=== PATIENT | male | born 1980 | race African-American/Black ===

== ENCOUNTER 2017-11-07 21:36 | Inpatient (IN) | payer MEDICAID, OTHER ==
[2017-11-07] MEDS ORDERED: Heparin 1,000 UNITS/ML VIAL ONE (21:40)
[2017-11-07] MEDS ORDERED: Lidocaine 1% (PF) 30 ML VIAL ONE (21:47)
[2017-11-07] MEDS ORDERED: Succinylcholine Chloride 20 MG/ML 10 ml SYRINGE FS ONE (21:50)
[2017-11-07] MEDS ORDERED: Benzocaine 20% Spray 60 ML CAN ONE (21:52)
[2017-11-07 22:01] LABS: Hemoglobin 15.4 g/dL (14.0-18.0); Mean Corpuscular HGB CONC 33.9 g/dL (32.0-36.0); Mean Corpuscular Hemoglobin 28.2 pg (27.0-31.0); Mean Corpuscular Volume 83.2 fl (80.0-94.0); RBC Distribution Width 14.2 % (11.5-14.5); Red Blood Cell (RBC) Count 5.46 mill/uL (4.70-6.10); White Blood Cell (WBC) Count 6.7 thou/uL (4.8-10.8)
[2017-11-07 22:07] LABS: PTT 66.5 SEC (22.9-36.1)
[2017-11-07 22:16] LABS: ALT (SGPT) 35 U/L (8-55); AST (SGOT) 33 U/L (5-34); Alkaline Phosphatase 93 U/L (40-150); Anion Gap 17 mmol/L (10-20); BUN (Urea Nitrogen) 11 mg/dL (8.9-20.6); Bilirubin, Total 0.3 mg/dL (0.2-1.2); Calc. Creatinine Clearance 0 mL/min (70-130); Calcium 9.7 mg/dL (7.8-10.44); Carbon Dioxide 24 mmol/L (22-29); Chloride 99 mmol/L (98-107); Estimated GFR-MDRD Greater than 90; Globulin 3.7 g/dL (2.4-3.5); Glucose 284 mg/dL (70-105); Lipase 116 U/L (8-78); Potassium 4.2 mmol/L (3.5-5.1); Protein, Total 7.7 g/dL (6.0-8.3); Sodium 136 mmol/L (136-145)
[2017-11-07 22:18] LABS: CKMB 5.8 ng/mL (0-6.6)
[2017-11-07] MEDS ORDERED: Aggrastat 12.5 MG/250 ML 250 ML ONE (22:18)
[2017-11-07] MEDS ORDERED: Ondansetron HCl/PF 4 MG/2 ML Vial ONE (22:18)
[2017-11-07 22:21] LABS: Band 2 % (5-11); Eosinophils 1 % (0-10); Lymphocytes 49 % (21-51); MDiff Complete? YES; Mean Platelet Volume 7.6 fL (7.4-10.4); Monocytes 9 % (0-10); Neutrophil 39 % (42-75); PLT Morphology Comment Appears Adequate; Platelet Count 216 thou/uL (130-400)
[2017-11-07] MEDS ORDERED: Heparin 10,000 UNITS/1 ML VIAL ONE (22:24)
[2017-11-07] MEDS ORDERED: Lidocaine 2% PF 100 mg/5 ml Syringe ONE (22:24)
[2017-11-07 22:25] LABS: Troponin I 0.553 ng/mL (< 0.028)
[2017-11-07] MEDS ORDERED: Lidocaine 2 gm/D5W 500 ml 500 ML ONE (22:26)
[2017-11-07] MEDS ORDERED: DOPamine 400 MG/D5W 250 ML 250 ML ONE (22:49)
[2017-11-07] MEDS ORDERED: traMADol HCl 50 MG TAB PO PRN (23:17)
[2017-11-07] MEDS ORDERED: Mag-Al 1200 mg/1200 mg/30 ML UDCUP PO PRN (23:17)
[2017-11-07] MEDS ORDERED: Nitroglycerin 0.4 MG TAB (25 Tab Bottle) SL PRN (23:17)
[2017-11-07] MEDS ORDERED: Zolpidem Tartrate 5 MG TAB PO PRN (23:17)
[2017-11-07] MEDS ORDERED: Milk Of Magnesia 30 ML UDCUP PO PRN (23:17)
[2017-11-07] MEDS ORDERED: Aggrastat 12.5 MG/250 ML 250 ML IVPB SCH ×2 (23:30)
[2017-11-07] MEDS ORDERED: Sodium Chloride 0.9% 1,000 ML IV SCH (23:30)
[2017-11-07 23:57] LABS: #Eosinphils 0.1 thou/uL (0.0-0.7); #Monocytes 0.7 thou/uL (0.11-0.59); #Neutrophils 8.3 thou/uL (1.40-6.50); %Basophils 0.4 % (0.0-1.0); %Eosinophils 0.5 % (0.0-10.0); %Lymphocytes 10.2 % (21.0-51.0); %Monocytes 6.5 % (0.0-10.0); %Neutrophils 82.4 % (42.0-75.0); Hemoglobin 14.3 g/dL (14.0-18.0); Mean Corpuscular HGB CONC 34.6 g/dL (32.0-36.0); Mean Corpuscular Hemoglobin 28.9 pg (27.0-31.0); Mean Corpuscular Volume 83.5 fl (80.0-94.0); Mean Platelet Volume 6.8 fL (7.4-10.4); Platelet Count 300 thou/uL (130-400); RBC Distribution Width 13.9 % (11.5-14.5); Red Blood Cell (RBC) Count 4.95 mill/uL (4.70-6.10); White Blood Cell (WBC) Count 10.1 thou/uL (4.8-10.8)
[2017-11-08 00:18] VITALS: BMI 54.1
[2017-11-08 00:24] LABS: CKMB 7.6 ng/mL (0-6.6); Troponin I 0.951 ng/mL (< 0.028)
[2017-11-08] MEDS: Amiodarone In Dextrose 200 ML IVPB SCH ×2 (00:35→05:23)
[2017-11-08] MEDS ORDERED: Dextrose 5% in Water 1,000 ML IV PRN (00:40)
[2017-11-08] MEDS ORDERED: Dextrose 50% Abboject 50 ML SYRINGE SLOW IVP PRN (00:40)
--- NOTE | 2017-11-08 01:14 | HP ---
PRIMARY CARE PHYSICIAN: None. CHIEF COMPLAINT: Chest pain. HISTORY OF PRESENT ILLNESS: Mr. Helm is a pleasant 37-year-old gentleman who was seen at [facility] on 11/08/2017. He presented to the emergency room yesterday evening complaining of crushing chest pain over the last week. It was accompanied by shortness of breath. He was found to have ST-elevation myocardial infarction. STEMI protocol was activated and was brought to the emergency room. In the emergency room, he received dopamine for hypotension. He also had cardiac arrest with ventricular fibrillation and had CPR with defibrillation. He was then taken by Cardiology Service to mobile home laborer. He was found to have an RCA lesion, which was stented. He is now in the critical care unit. Occupational Health Physiotherapist wanted the patient to be admitted under the hospitalist service. Following defibrillation, patient has been in atrial fibrillation with rapid ventricular response. REVIEW OF SYSTEMS: The following complete review of systems was negative, unless otherwise mentioned in the HPI or below: Constitutional: Weight loss or gain, ability to conduct usual activities. Skin: Rash, itching. Eyes: Double vision, pain. ENT/Mouth: Nose bleeding, neck stiffness, pain, tenderness. Cardiovascular: Palpitations, dyspnea on exertion, orthopnea. Respiratory: Shortness of breath, wheezing, cough, hemoptysis, fever, or night sweats. Gastrointestinal: Poor appetite, abdominal pain, heartburn, nausea, vomiting, constipation, or diarrhea. Genitourinary: Urgency, frequency, dysuria, nocturia. Musculoskeletal: Pain, swelling. Neurologic/Psychiatric: Anxiety, depression. Allergy/Immunologic: Skin rash, bleeding tendency. PAST MEDICAL HISTORY: Significant for diabetes mellitus and hypertension. SURGICAL HISTORY: None. SOCIAL HISTORY: Does not use alcohol or recreational drugs. He smokes 10-15 cigarettes a day. FAMILY HISTORY: Myocardial infarction in his grandmother. ALLERGIES: No known drug allergies. CURRENT MEDICATIONS: These need to be clarified. PHYSICAL EXAMINATION: GENERAL: On examination, Mr. Helm is awake and alert, not in acute distress. VITAL SIGNS: Blood pressure is 129/92, heart rate is 124. He is breathing at rate of 30 and saturating 92% on 2 liters of oxygen. He is afebrile. He is morbidly obese. EYES: No scleral icterus, no conjunctival pallor. ENT: Moist mucosal membranes, no oropharyngeal erythema or exudates. NECK: Supple, nontender, normal range of movement, trachea midline. RESPIRATORY: Accessory muscles of breathing are not active. Chest wall movements are symmetrical bilaterally. Lungs are clear to auscultation without wheeze, rhonchi, or crepitations. CARDIOVASCULAR: S1 and S2 are heard, tachycardic and irregular. Peripheral pulses palpable. No carotid bruit, no pericardial rub. ABDOMEN: Distended, nontender, bowel sounds heard. NEUROLOGIC: Cranial nerves II-XII are intact. Deep tendon reflexes are 2+. MUSCULOSKELETAL: Power is 5/5 in all 4 extremities. SKIN: No rashes or subcutaneous nodules. No oozing at the right groin puncture site. LYMPHATIC: No cervical lymphadenopathy. PSYCHIATRIC: Normal mood, normal affect, patient is oriented to person, place, and time. LABORATORY DATA: Mr. Helm' labs and investigations were reviewed. I reviewed his electrocardiogram from 2139 hours yesterday, which shows ST elevations in the inferolateral leads. skin carver at this time shows atrial fibrillation with rapid ventricular response. He has an unremarkable CBC , INR 1.0, elevated troponin I of 0.951, elevated glucose of 284, otherwise unremarkable comprehensive metabolic profile and elevated lipase of 116. ASSESSMENT AND PLAN: Mr. Helm is a pleasant 37-year-old gentleman who was seen at [facility] on 11/08/2017. His problem list includes: 1. ST-elevation myocardial infarction: He underwent PCI with bare-metal stent to the distal right coronary artery. His estimated left ventricular ejection fraction is 60%-65%. We will resume care of the patient and continue him on statin, beta-diego, [place] inhibitor, and aspirin. He has also been started on ticagrelor, which will be continued. 2. Tobacco abuse: Patient has been counseled regarding tobacco cessation. 3. Obesity: Consult dietitian. 4. Atrial fibrillation with RVR: pt has been started on amiodarone. 5. Diabetes mellitus: Accuchecks, insulin sliding scale. 6. HTN: Monitor vital signs, titrate antihypertensives as needed. LEVEL OF RISK: Moderate. LEVEL OF COMPLEXITY: Moderate. MTDD
[2017-11-08] MEDS ORDERED: Digoxin 0.5 MG/2 ML AMP SLOW IVP SCH ×3 (04:00→16:00)
[2017-11-08 04:43] LABS: #Lymphocytes 1.2 thou/uL (1.20-3.40); #Monocytes 0.6 thou/uL (0.11-0.59); #Neutrophils 6.4 thou/uL (1.40-6.50); %Basophils 0.4 % (0.0-1.0); %Eosinophils 0.2 % (0.0-10.0); %Lymphocytes 14.9 % (21.0-51.0); %Neutrophils 77.4 % (42.0-75.0); Mean Corpuscular HGB CONC 34.4 g/dL (32.0-36.0); Mean Corpuscular Hemoglobin 28.8 pg (27.0-31.0); Mean Corpuscular Volume 83.6 fl (80.0-94.0); Platelet Count 310 thou/uL (130-400); RBC Distribution Width 13.9 % (11.5-14.5); Red Blood Cell (RBC) Count 4.86 mill/uL (4.70-6.10); White Blood Cell (WBC) Count 8.3 thou/uL (4.8-10.8)
[2017-11-08 05:05] LABS: ALT (SGPT) 64 U/L (8-55); AST (SGOT) 63 U/L (5-34); Albumin 3.5 g/dL (3.5-5.0); Alkaline Phosphatase 77 U/L (40-150); Anion Gap 14 mmol/L (10-20); BUN (Urea Nitrogen) 12 mg/dL (8.9-20.6); Bilirubin, Total 0.3 mg/dL (0.2-1.2); Calc. Creatinine Clearance 242 mL/min (70-130); Calcium 9.1 mg/dL (7.8-10.44); Carbon Dioxide 26 mmol/L (22-29); Cardiac Risk 5.8 (Less than 4.5); Chloride 103 mmol/L (98-107); Cholesterol 185 mg/dl (< 200 Desired); Estimated GFR-MDRD Greater than 90; Globulin 2.7 g/dL (2.4-3.5); Glucose 255 mg/dL (70-105); HDL Cholesterol 32 mg/dL (>60 Neg Risk); LDL Cholesterol, Calculated 100 mg/dL; Potassium 4.3 mmol/L (3.5-5.1); Protein, Total 6.2 g/dL (6.0-8.3); Sodium 139 mmol/L (136-145); Triglycerides 267 mg/dL (Less than 150)
--- NOTE | 2017-11-08 05:53 | HP ---
DATE OF ADMISSION: 11/07/2017 INDICATION FOR ADMISSION: A 37-year-old patient who presented to the emergency room with acute ST se gment elevation inferior myocardial infarction was advised to undergo emergent cardiac catheterizatio n. When he was seen in the emergency room, I talked to his family. The patient actually arrived the re complaining of chest pain, which has been ongoing for about 2 days and presented to emergency room due to worsening chest pain, 911 was called. When he arrived, the patient was diaphoretic and compl aining of chest pain when he arrived to emergency room, had acute ST segment elevations in the inferi or leads. The patient then developed acute ventricular fibrillation required resuscitation. I belie ve, he was shocked once or twice in the emergency room, CPR was initiated. He was then stabilized af ter being given, I believe lidocaine in the emergency room and also was given heparin. Emergently, w e are taking the patient to the cardiac catheterization lab. Prior to this, I discussed with the leyla padmini. PAST MEDICAL HISTORY: His past medical history which includes; 1. Diabetes for about 20 years. 2. Hypertension. 3. Hypercholesterolemia. SOCIAL HISTORY: He recently was released from half-way. He is . He has 2 children, the age is 12 and 15. He smoked in the past and continues to smoke a third of a pack a day since after 20 year s. He denies any alcohol use and denies any drug use at this time. FAMILY HISTORY: Noncontributory. MEDICATIONS PRIOR TO ADMISSION: Included, Novolin N 100 unit/mL and 10 mL vial, he takes 20 units ev maryuri morning. He also takes 20 units every evening. He is on amlodipine 10 mg a day, hydrochlorothia zide 25 mg once a day, lisinopril 20 mg once a day, metformin 1000 mg 1 b.i.d., pravastatin 40 mg q.p .m. ALLERGIES: There were no known drug allergies. REVIEW OF SYSTEMS: A 12 point review of systems according to the family was unremarkable. The patie nt was in too much distress and too acute to do the review of systems for the patient. The family di d state he continues to smoke and has had a recent vomiting and some diaphoresis, most likely associa mitchell with his acute inferior myocardial infarction. I suspect he became ischemic, but his original tr oponin I in the emergency room was 0.553, MBs were 5.8. His other laboratory data shows elevated blo od sugar, but originally on arrival in the emergency room tonight, it was 284. The patient does have a long history of diabetes. Otherwise, his review of systems unremarkable. PHYSICAL EXAMINATION: GENERAL: Reveals a morbidly obese patient, who is in significant distress at this time to continue c hest pain. He has already been shocked in the emergency room. VITAL SIGNS: Blood pressure was 155/102 when he arrived. By the time he arrived to the fish farm laborer, bl ood pressure was 108/69. He had a heart rate in the 120s. He has required cardioversion in the [facility] room. On arrival here, he was in atrial fibrillation from the time he was leaving the emergenc y room so also in the fish farm laborer. Respiratory rate in the 20s. He was on oxygen. He is a morbidly ob marcial gentleman. He is alert and oriented at this time. HEENT: Unremarkable. CARDIOVASCULAR: Exam revealed tachycardia, irregular rhythm. I do not hear any significant murmurs, heaves, thrills, bruits, or rubs. CHEST: Clear anteriorly. ABDOMEN: Morbidly obese. EXTREMITIES: Showed no clubbing or cyanosis. No significant edema. Pedal pulses are present. NEUROLOGIC: The patient appears to be intact. SKIN: Slightly clammy when he was in the emergency room. NEUROLOGICAL: The patient remains intact. LABORATORY DATA: EKG shows acute inferior ST segment elevation myocardial infarction. IMPRESSION: 1. Acute inferior myocardial infarction. The patient will be taken emergently to the cardiac cathet erization lab. I explained the procedure and risks to his family and also to him. He will need to [facility] emergent cardiac catheterization for which he will undergo the procedure today. 2. Diabetes. We will ask the Hospitalist Service to assist in his care. Actually, we tried to admi t the patient to the Hospital Service. Due to his multiple other medical problems, we will continue his sliding scale insulin at this time. 3. History of hypercholesterolemia. We will continue monitor him on some type of statin medication. 4. History of tobacco abuse. He will be strongly encouraged to stop smoking altogether. 5. History of hypertension. We will need to adjust his medications accordingly in order to lower th e blood pressure. I have explained the risks and procedures to he and his family to include bleeding , infection, myocardial infarction, worsening of as well as bleeding, infections, and renal ins ufficiency, especially in the phase of diabetes. He understands and will proceed for emergent cardia c catheterization as soon as we can get the patient to the fish farm laborer.
[2017-11-08] MEDS: Insulin Regular 300 UNITS/3 ML VIAL SC PRN ×3 (06:32→20:54)
[2017-11-08 07:18] LABS: CKMB 25.3 ng/mL (0-6.6)
[2017-11-08] MEDS ORDERED: Amiodarone In Dextrose 200 ML IVPB SCH (08:29)
--- NOTE | 2017-11-08 08:40 | PDOC.CTH ---
<Joan Morales - Last Filed: 11/08/17 08:44> Cardiology Progress Note - Subjective The pt seen and examined. No overnight events. No cardiac complaints. - Objective Vital Signs Temp Pulse Resp Pulse Ox 11/08/17 04:00 98.7 F 11/08/17 03:53 124 H 11/08/17 00:58 97.8 F 122 H 25 H 94 L 11/08/17 00:00 97.8 F 11/07/17 11/08/17 11/09/17 06:59 06:59 06:59 Intake Total 1098 Output Total 1125 Balance -27 - Physical Examination General/Neuro: alert & oriented x3 Neck: no JVD present Lungs: CTA Heart: other: (Irregular) Abdomen: soft Extremities: other: (No edema; good pulse in RLE) - Telemetry Telemetry Rhythm: Aifb HR 90-100s - Labs Result Diagrams: 11/08/17 04:10 11/08/17 04:10 Troponin/CKMB CK-MB (CK-2) 25.3 ng/mL (0-6.6) H* 11/08/17 04:10 Troponin I 0.951 ng/mL (< 0.028) H* 11/07/17 23:17 - Assessment/Plan 1. STEMI with s/p Cardiac cath wtih Shana-metal stent x1 in distal RCA on - stable; renal function is stable; on BBlocker, [place], Brilinta, ASA 81mg, and Statin; cont. monitor on tele 2. Afib with RVR - HR has been 90-110s with Amiodarone IV drip, Dig, and BBlocker; Amiodarone IV will be changed to 400mg PO BID x 1wk and then changed to 200mg BID; 3. HTN - stable with current medication 4. Hyperlipidemia - LDL was 100; start Statin 5. DM type 2 - on ACHS Insuline SS; managed by PCP 6. Obese - weight management education given 7. Tobacco abuse - smoking cessation education given to the pt and family MAR reviewed * If the pt is stable after Aggrestat is d/raquel at 1200 today, the pt can be tx to tele Review of Systems - Review of Systems Constitutional: reports: no symptoms reported EENTM: reports: no symptoms reported Respiratory: reports: no symptoms reported Cardiac (ROS): reports: no symptoms reported ABD/GI: reports: no symptoms reported : reports: no symptoms reported Musculoskeletal: reports: no symptoms reported <Riana Ordonez - Last Filed: 11/08/17 17:10> Cardiology Progress Note - Objective Vital Signs Temp Pulse Resp Pulse Ox 11/08/17 15:31 81 11/08/17 09:53 124 H 11/08/17 08:00 99.2 F 100 20 2 L 11/07/17 11/08/17 11/09/17 06:59 06:59 06:59 Intake Total 1098 1447 Output Total 1125 1300 Balance -27 147 - Labs Result Diagrams: 11/08/17 04:10 11/08/17 04:10 Troponin/CKMB CK-MB (CK-2) 25.3 ng/mL (0-6.6) H* 11/08/17 04:10 Troponin I 5.798 ng/mL (< 0.028) H* 11/08/17 04:10 - Assessment/Plan pt. seen and eval. by me. I agree with the a/P by the TABLE GAMES DUAL RATE SUPERVISOR.. It appears that his CA was aborted soon enough to avoid much myocardial damage.
[2017-11-08 09:00] LABS: Troponin I 5.798 ng/mL (< 0.028)
[2017-11-08] MEDS ORDERED: Carvedilol 3.125 MG TAB PO SCH (09:00)
[2017-11-08] MEDS: TICAGRELOR 90 MG TABLET PO SCH ×2 (09:42→20:46)
--- NOTE | 2017-11-08 14:06 | PDOC.PN ---
- Subjective Encounter Start Date: 11/08/17 Encounter Start Time: 14:05 Subjective: nsg notes rev, hero ovn, no new c/o, @ bedside - Objective Vital Signs & Weight: Vital Signs (12 hours) Temp Pulse Resp Pulse Ox 11/08/17 09:53 124 H 11/08/17 08:00 99.2 F 100 20 2 L 11/08/17 04:00 98.7 F 11/08/17 03:53 124 H Most Recent Monitor Data Heart Rate from ECG 101 NIBP 125/75 NIBP BP-Mean 89 Respiration from ECG 29 SpO2 95 I&O: 11/07/17 11/08/17 11/09/17 06:59 06:59 06:59 Intake Total 1098 1267 Output Total 1125 800 Balance -27 467 Result Diagrams: 11/08/17 04:10 11/08/17 04:10 Additional Labs: Accuchecks 11/08/17 11/08/17 12:28 06:35 POC Glucose 195 H 195 H Phys Exam - Physical Examination Constitutional: NAD HEENT: PERRLA, moist MMs Respiratory: no wheezing, no rales, no rhonchi, clear to auscultation bilateral Cardiovascular: RRR, no significant murmur, no rub Gastrointestinal: soft, positive bowel sounds Musculoskeletal: no edema, pulses present Psychiatric: normal affect Dx/Plan - Plan * STEMI * s/p LHC with BMS to RCA 11/07 * apprec card c/s * continue med mgmt afib RVR * rate controlled * cont amio, dig, ASA IDDM currently stable diet: cardiac activity: cardiac dvt ppx Review of Systems - Medications/Allergies Allergies/Adverse Reactions: Allergies Allergy/AdvReac Type Severity Reaction Status Date / Time No Known Drug Allergies Allergy Verified 11/08/17 08:43 Medications: Current Medications Al Hydroxide/Mg Hydroxide (Maalox) 30 ml PO Q3H PRN PRN Reason: Indigestion Amiodarone HCl (Cordarone) 400 mg PO BID [facility] Aspirin (Aspirin Chewable) 81 mg PO DAILY [facility] Last Admin: 11/08/17 08:44 Dose: 81 mg Atorvastatin Calcium (Lipitor) 40 mg PO HS [facility] Captopril (Capoten) 6.25 mg PO TID [facility] Last Admin: 11/08/17 08:44 Dose: 6.25 mg Carvedilol (Coreg) 3.125 mg PO BID [facility] Last Admin: 11/08/17 08:44 Dose: 3.125 mg Dextrose/Water (Dextrose 50%) 25 gm SLOW IVP PRN PRN PRN Reason: PER HYPOGLYCEMIC PROTOCOL Digoxin (Lanoxin) 0.25 mg SLOW IVP 1600 COLT Stop: 11/08/17 18:00 Digoxin (Lanoxin) 0.25 mg PO DAILY COLT Glucagon (Glucagon) 1 mg SC PRN PRN PRN Reason: PER HYPOGLYCEMIC PROTOCOL Dextrose/Water (D5w) 1,000 mls @ 0 mls/hr IV INF PRN; As Directed PRN Reason: PRN HYPOGLYCEMIC PROTOCOL Amiodarone HCl/Dextrose (Nexterone) 200 mls @ 0 mls/hr IVPB INF COLT; As Directed PRN Reason: Protocol Stop: 11/08/17 20:00 Insulin Human Regular (Humulin R) 0 units SC Q4H PRN; Protocol PRN Reason: POST OP SLIDING SCALE Last Admin: 11/08/17 12:35 Dose: 4 unit Magnesium Hydroxide (Milk Of Magnesium) 30 ml PO Q12H PRN PRN Reason: Constipation Nitroglycerin (Nitrostat) 0.4 mg SL Q5MIN PRN PRN Reason: Chest Pain Ticagrelor (Brilinta) 90 mg PO BID [facility] Last Admin: 11/08/17 09:42 Dose: 90 mg Tramadol HCl (Ultram) 50 mg PO Q6H PRN PRN Reason: Pain Zolpidem Tartrate (Ambien) 5 mg PO HSPRN PRN PRN Reason: Insomnia
[2017-11-08] MEDS ORDERED: Lidocaine 2% PF 100 mg/5 ml Syringe ONE (14:09)
[2017-11-08] MEDS ORDERED: EPINEPHrine 1 MG/10 ML Abboject SYRINGE ONE (14:09)
[2017-11-08] MEDS ORDERED: Heparin 10,000 UNITS/ 10 ML VIAL ONE (14:10)
--- NOTE | 2017-11-08 15:34 | CON ---
DATE OF CONSULTATION: 11/08/2017 HISTORY OF PRESENT ILLNESS: This is a 37-year-old morbidly obese gentleman who presented yesterday w ith chest pain. called 911, taken to the blood bank laboratory technician by Dr. Ordonez. Blood pressure was 100/50, he w as given dopamine. Heparin ordered. A single stent in the ICU was placed in. REASON FOR CONSULTATION: He needs to be on the vent. He was apparently in rehab in [place] for substance abuse. Smoking 2 pack a day for most of his life. Denies any alcohol abuse, but he has had previous history of drug abuse including PCP in the past. He was seen by Dr. Linn in the office last year while he had apparently presumed PCP issues. Apparently, he had a cardiac arrest with ventricular fibrillation requiring CPR and defibrillation. The patient was taken to the cardiac blood bank laboratory technician last night. He apparently was in atrial fibrillation. 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 FAMILY HISTORY: Unremarkable. PAST SURGICAL HISTORY: Apparently none. PAST MEDICAL HISTORY: Diabetes, hypertension. MEDICATIONS: He takes medication, unknown what. REVIEW OF SYSTEMS: Otherwise unremarkable. PHYSICAL EXAMINATION: GENERAL: He is awake, responsive, obese gentleman. VITAL SIGNS: Pulse 110, blood pressure 109/70, sats are 98, respiration 14. CHEST: Decreased breath sounds. CARDIAC: Normal S1, S2, no gallops. ABDOMEN: Soft, no masses. LABORATORY DATA AND IMAGING: X-ray is clear. White count 8.3, H and H 14 and 40. Electrolytes are normal. Glucose 255. His EKG shows evidence of inferior infarct atrial fibrillation. CK-MB is elevated. His AST is 63. IMPRESSION: 1. Emergency cardiac cath status post acute inferior myocardial infraction with cardiopulmonary arre st, ventricular fibrillation, supraventricular tachycardia, status post shock. 2. Abnormal liver function. 3. Previous substance abuse. 4. Obesity, probably sleep apnea. 5. Tobacco abuse. 6. Abnormal liver function. PLAN: He is on amiodarone, Captopril, Coreg, supportive care. We will follow in the ICU. Probably, he needs an outpatient sleep study. PT, supportive care. We will follow. Please note, this is a consultation note of which 50 minutes spend direct patient care.
[2017-11-08] MEDS ORDERED: hydrALAZINE 20 MG/ML VIAL SLOW IVP SCH (18:30)
[2017-11-08] MEDS ORDERED: Carvedilol 6.25 MG TAB PO SCH (18:30)
[2017-11-08] MEDS: Atorvastatin Calcium 40 MG TAB PO SCH (20:45)
[2017-11-08] MEDS: Amiodarone 200 MG TAB PO SCH (20:45)
[2017-11-08] MEDS ORDERED: Atorvastatin Calcium 40 MG TAB PO SCH (21:00)
[2017-11-09 06:38] LABS: Critical Call Chem Troponin I RESULT DECREASING; Troponin I 4.611 ng/mL (< 0.028)
[2017-11-09] MEDS ORDERED: Digoxin 0.5 MG/2 ML AMP SLOW IVP SCH (09:00)
[2017-11-09] MEDS: Digoxin 0.25 MG TAB PO SCH (09:38)
[2017-11-09] MEDS: Amiodarone 200 MG TAB PO SCH (09:38)
[2017-11-09] MEDS: Carvedilol 6.25 MG TAB PO SCH ×2 (09:39→17:00)
[2017-11-09] MEDS ORDERED: Clopidogrel Bisulfate 75 MG TAB PO SCH (10:15)
[2017-11-09] MEDS ORDERED: Lisinopril 10 MG TAB PO SCH (10:15)
--- NOTE | 2017-11-09 10:30 | PDOC.CTH ---
Cardiology Progress Note - Subjective The pt seen and examined. No overnight events. No cardiac complaints. He has not walked hallway yet since he was admitted. - Objective Vital Signs Temp Pulse Resp BP BP BP Pulse Ox 11/09/17 09:39 140/88 11/09/17 09:38 84 11/09/17 08:10 99.1 F 84 18 140/88 97 11/09/17 06:10 98.9 F 89 20 156/100 H 94 L 11/08/17 11/09/17 11/10/17 06:59 06:59 06:59 Intake Total 1098 2159 Output Total 1125 2950 Balance -27 -791 - Physical Examination General/Neuro: alert & oriented x3 Neck: no JVD present Lungs: CTA Heart: RRR Abdomen: soft Extremities: other: (No edema) - Telemetry Telemetry Rhythm: SR 90s - Labs Result Diagrams: 11/08/17 04:10 11/08/17 04:10 Troponin/CKMB CK-MB (CK-2) 25.3 ng/mL (0-6.6) H* 11/08/17 04:10 Troponin I 4.611 ng/mL (< 0.028) H* 11/09/17 05:08 - Assessment/Plan 1. STEMI with s/p Cardiac cath wtih Shana-metal stent x1 in distal RCA on - stable; renal function is stable; on BBlocker, [place], Plavix, ASA 81mg, and Statin; cont. monitor on tele 2. Afib with RVR - Conerted back to SR while the pt was in CCU yesterday with SR 90s. Stop Amiodarone PO and cont. Coreg 6.25mg BID; Cont. monitor on tele 3. HTN - stable with Lisinopril 10mg BID and Coreg 6.25mg BID; cont.. monitor 4. Hyperlipidemia - LDL was 100; on Statin 5. DM type 2 - on ACHS Insuline SS; managed by PCP 6. Obese - weight management education given 7. Tobacco abuse - smoking cessation education given to the pt and family MAR reviewed * Brilinta was changed to Plavixx 75mg daily due to the cost * From Cardiac standpoint, the pt is stable to d/c home when he can walks (he has not walk hallway since admission). The pt will f/u with Dr Ordonez' office within 2-4 wks. *Discharge medication to home: Coreg 6.25mg BID, Lisinopril 10mg Bid, Lipitor 40mg, and Plavix daily Review of Systems - Review of Systems Constitutional: reports: no symptoms reported EENTM: reports: no symptoms reported Respiratory: reports: no symptoms reported Cardiac (ROS): reports: no symptoms reported ABD/GI: reports: no symptoms reported : reports: no symptoms reported Musculoskeletal: reports: no symptoms reported
[2017-11-09] MEDS ORDERED: Bupivacaine 0.5% 10 ML VIAL ONE (20:00)
[2017-11-09] MEDS ORDERED: Sodium Chloride 0.9% 20 ML ONE (20:49)
[2017-11-09] MEDS: TICAGRELOR 90 MG TABLET PO SCH (21:27)
[2017-11-09] MEDS: Atorvastatin Calcium 40 MG TAB PO SCH (21:28)
[2017-11-09] MEDS: Lisinopril 10 MG TAB PO SCH (21:28)
--- NOTE | 2017-11-09 22:33 | PDOC.PN ---
- Subjective Encounter Start Date: 11/09/17 Encounter Start Time: 17:00 Subjective: nsg notes rev, hero ovn, no new issues - Objective Vital Signs & Weight: Vital Signs (12 hours) Temp Pulse Resp BP BP BP Pulse Ox 11/09/17 19:44 98.3 F 78 20 134/90 99 11/09/17 17:00 140/88 11/09/17 15:45 98.4 F 82 20 140/90 11/09/17 11:32 140/88 Most Recent Monitor Data Heart Rate from ECG 85 NIBP 141/93 NIBP BP-Mean 106 Respiration from ECG 19 SpO2 98 I&O: 11/08/17 11/09/17 11/10/17 06:59 06:59 06:59 Intake Total 1098 2159 Output Total 1127 2950 Balance -27 -791 Result Diagrams: 11/08/17 04:10 11/08/17 04:10 Additional Labs: Accuchecks 11/09/17 11/09/17 11/09/17 19:52 11:20 06:12 POC Glucose 232 H 224 H 170 H Phys Exam - Physical Examination Constitutional: NAD HEENT: PERRLA, moist MMs, sclera anicteric Respiratory: no wheezing, no rales, no rhonchi, clear to auscultation bilateral Cardiovascular: RRR, no significant murmur, no rub Musculoskeletal: no edema, pulses present Neurological: moves all 4 limbs Psychiatric: normal affect Dx/Plan - Plan * STEMI * s/p LHC with BMS to RCA 11/07 * apprec card c/s * continue med mgmt afib RVR * rate controlled * cont amio (was on gtt, transitioned to PO), dig, ASA IDDM currently stable tob cessation - potentially contemplative diet: cardiac activity: cardiac dvt ppx d/c plannnig Review of Systems - Medications/Allergies Allergies/Adverse Reactions: Allergies Allergy/AdvReac Type Severity Reaction Status Date / Time No Known Drug Allergies Allergy Verified 11/08/17 08:43
[2017-11-10 05:21] LABS: Critical Call Chem Troponin I RESULT DECREASING; Troponin I 3.018 ng/mL (< 0.028)
[2017-11-10 08:17] VITALS: TEMP 97.9
[2017-11-10] MEDS: Lisinopril 10 MG TAB PO SCH (08:53)
[2017-11-10] MEDS: Digoxin 0.25 MG TAB PO SCH (08:53)
[2017-11-10] MEDS: Carvedilol 6.25 MG TAB PO SCH (08:53)
[2017-11-10] MEDS ORDERED: Clopidogrel Bisulfate 75 MG TAB PO SCH (09:00)
[2017-11-10] MEDS: Insulin Regular 300 UNITS/3 ML VIAL SC PRN (11:07)
[2017-11-10 11:22] VITALS: BP 143/92
--- NOTE | 2017-11-13 09:00 | DIS ---
DISCHARGE DIAGNOSES: 1. ST elevation myocardial infarction, status post left heart catheterization with bare metal stent to the right coronary artery on 11/07/2017. 2. Atrial fibrillation with rapid ventricular response, currently rate controlled. 3. Tobacco abuse. BRIEF SUMMARY OF HOSPITAL COURSE: This is a 37-year-old male with a known history of insulin-dependent diabetes and tobacco use, who presented with chest pain. Please see the original history and physical for full details surrounding admission. The patient was noted to have STEMI in the emergency department and seen emergently by Cardiology. The patient underwent a left heart catheterization with a bare metal stent placement to the right coronary artery on 11/07/2017. He has been continued on medical management post- procedurally. The patient's course was complicated by the development of atrial fibrillation with rapid ventricular response. He was initially placed on amiodarone drip, which has since been converted to an oral regimen along with digoxin for rate control and aspirin for anticoagulation. The patient underwent tobacco cessation counseling during this hospitalization with several providers. At the time of discharge, he is potentially contemplative of tobacco cessation. Remainder of the patient's chronic medical issues including his insulin-dependent diabetes had remained stable during this hospitalization. CONSULTATIONS: 1. Cardiology. 2. Pulmonary Critical Care MEDICATION RECONCILIATION: Please see the EMR for full details. The patient will continue on his home regimen of insulin plus metformin. The patient has been newly prescribed lisinopril 20 mg p.o. daily, digoxin 0.25 mg p.o. daily, clopidogrel 75 mg p.o. daily, carvedilol 6.25 mg p.o. b.i.d., atorvastatin 40 mg p.o. daily, aspirin 81 mg p.o. daily. Prescriptions have been given as needed. PATIENT'S CONDITION AT DISCHARGE: At the time of discharge, the patient is hemodynamically stable, tolerating based on cardiac diet, managing his ADLs appropriately. The patient was seen and examined on the day of discharge. DISCHARGE INSTRUCTIONS: The patient is asked to follow up closely with his outpatient team including his primary care provider, Cardiology. The patient is able to complete teach back. Greater than 30 minutes were spent coordinating discharge for the patient. Thank you for asking me to care for your patient. Questions or concerns, please contact me at [facility]. BRANDEN
--- NOTE | 2017-12-01 19:55 | EKG ---
Test Reason : STEMI Blood Pressure : / mmHG Vent. Rate : 077 BPM Atrial Rate : 077 BPM P-R Int : 186 ms QRS Dur : 120 ms QT Int : 346 ms P-R-T Axes : 264 075 074 degrees QTc Int : 391 ms Unusual P axis, possible ectopic atrial rhythm Non-specific intra-ventricular conduction delay ST elevation consider inferolateral injury or acute infarct * ACUTE ME * Consider right ventricular involvement in acute inferior infarct Abnormal ECG Confirmed by IZABELA SOSA ([id number]), web content editor DIVYA HOLMAN ([id number]) on 12/01/2017 7:54:52 PM Referred By: JODY BOLANOS Confirmed By:IZABELA SOSA
--- NOTE | 2018-01-12 13:55 | EKG ---
Test Reason : Blood Pressure : / mmHG Vent. Rate : 112 BPM Atrial Rate : 127 BPM P-R Int : 000 ms QRS Dur : 092 ms QT Int : 316 ms P-R-T Axes : 000 076 -06 degrees QTc Int : 431 ms Atrial fibrillation with rapid ventricular response Possible Inferior infarct (cited on or before 08-NOV-2017) Abnormal ECG When compared with ECG of 08-NOV-2017 00:36, (Unconfirmed) Serial changes of evolving Inferior infarct Present Confirmed by ANN MARIE GROSS MD ([id number] on 01/12/2018 1:55:43 PM Referred By: VANDANA Confirmed By:ANN MARIE GROSS MD
--- NOTE | 2018-01-12 13:55 | EKG ---
Test Reason : POST-CATH Blood Pressure : / mmHG Vent. Rate : 124 BPM Atrial Rate : 127 BPM P-R Int : 000 ms QRS Dur : 096 ms QT Int : 304 ms P-R-T Axes : 000 077 046 degrees QTc Int : 436 ms Atrial fibrillation with rapid ventricular response Inferior infarct , possibly acute ACUTE [place] / STEMI Abnormal ECG When compared with ECG of 08-DEC-2016 23:02, Atrial fibrillation has replaced Sinus rhythm Inferior infarct is now Present ST elevation now present in Inferior leads Confirmed by GINNY RODRIGUEZ, ANN MARIE ([id number]) on 01/12/2018 1:55:12 PM Referred By: VANDANA Confirmed By:ANN MARIE GROSS MD
== END 2017-11-10 13:44 | disposition home or self-care (01) | DRG 248 ==
LOC: ERS 21:36 → CCU 22:02 → CCL 22:48 → CCU 23:17 → 2NO 11-09 06:19
PROVIDERS: ADMIT Internal Medicine Cardiovascular Disease; ATTEND Internal Medicine Cardiovascular Disease
PROC: 02703DZ Dilation of Coronary Artery, One Artery with Intraluminal Device, Percutaneous Approach (ICD-10-PCS; principal; 2017-11-07)
PROC: 4A023N7 Measurement of Cardiac Sampling and Pressure, Left Heart, Percutaneous Approach (ICD-10-PCS; 2017-11-07)
PROC: B2111ZZ Fluoroscopy of Multiple Coronary Arteries using Low Osmolar Contrast (ICD-10-PCS; 2017-11-07)
PROC: B2151ZZ Fluoroscopy of Left Heart using Low Osmolar Contrast (ICD-10-PCS; 2017-11-07)
PROC: 5A2204Z Restoration of Cardiac Rhythm, Single (ICD-10-PCS; 2017-11-07)
DX: I21.19 ST elevation (STEMI) myocardial infarction involving other coronary artery of inferior wall (principal); I49.01 Ventricular fibrillation; E66.01 Morbid (severe) obesity due to excess calories; I46.2 Cardiac arrest due to underlying cardiac condition; Z68.43 Body mass index [BMI] 50.0-59.9, adult; E11.9 Type 2 diabetes mellitus without complications; E78.5 Hyperlipidemia, unspecified; I10 Essential (primary) hypertension; F17.210 Nicotine dependence, cigarettes, uncomplicated
CPT/HCPCS: 36415; 36416; 51701; 71045; 80053; 80061; 82553; 83690; 84484; 85025; 85347; 85610; 85730; 90471; 90732; 92941; 92950; 92960; 93005; 93010; 93306; 93458; 93798; 94760; 96374; 96375; 99292; A4216; C1725; C1769; C1876; C1887; G0009; J0171; J0282; J0360; J1160; J1265; J1644; J1815; J2001; J2405; J3246; J3490

== ENCOUNTER 2019-12-28 09:44 | Inpatient (IN) | payer OTHER ==
[~2019-12-28 09:44] MED LIST: Aspirin Chewable 81 MG TAB ONE; Heparin 10,000 UNITS/ 10 ML VIAL ONE; Iopamidol 370 76% 100 ML VIAL ONE; Nitroglycerin 0.4 MG TAB (25 Tab Bottle) ONE
[2019-12-28 10:16] LABS: #Lymphocytes 1.3 thou/uL (1.20-3.40); #Monocytes 1.2 thou/uL (0.11-0.59); #Neutrophils 5.8 thou/uL (1.40-6.50); %Basophils 0.6 % (0.0-1.0); %Eosinophils 0.5 % (0.0-10.0); %Lymphocytes 15.8 % (21.0-51.0); %Monocytes 14.2 % (0.0-10.0); %Neutrophils 68.9 % (42.0-75.0); Hemoglobin 17.1 g/dL (14.0-18.0); Mean Corpuscular HGB CONC 34.3 g/dL (32.0-36.0); Mean Corpuscular Hemoglobin 29.8 pg (27.0-31.0); Mean Corpuscular Volume 87.1 fL (78.0-98.0); Mean Platelet Volume 7.9 fL (7.4-10.4); Platelet Count 267 thou/uL (130-400); RBC Distribution Width 14.7 % (11.5-14.5); Red Blood Cell (RBC) Count 5.72 mill/uL (4.70-6.10); White Blood Cell (WBC) Count 8.5 thou/uL (4.8-10.8)
[2019-12-28 10:22] LABS: INR-International Normal Ratio 0.9; PTT 27.3 SEC (22.9-36.1); Prothrombin Time 12.6 SEC (12.0-14.7)
--- NOTE | 2019-12-28 10:30 | RAD ---
PORTABLE CHEST: DATE: 12/28/2019. PROVIDED CLINICAL HISTORY: Chest pain. FINDINGS: Comparison 12/09/2016. Evaluation is limited by patient body habitus. Cardiac silhouette appears enl arged, which may be at least partially on the basis of portable technique. No focal consolidation, p leural fluid, or pneumothorax. IMPRESSION: No evidence for an acute cardiopulmonary process. POS: FISH
[2019-12-28 10:37] LABS: ALT (SGPT) 44 U/L (8-55); AST (SGOT) 150 U/L (5-34); Albumin 3.7 g/dL (3.5-5.0); Alkaline Phosphatase 75 U/L (40-110); Anion Gap 15 mmol/L (10-20); BUN (Urea Nitrogen) 8 mg/dL (8.9-20.6); Calc. Creatinine Clearance 0 mL/min (70-130); Calcium 9.3 mg/dL (7.8-10.44); Carbon Dioxide 27 mmol/L (22-29); Chloride 100 mmol/L (98-107); Estimated GFR-MDRD Greater than 90; Globulin 3.2 g/dL (2.4-3.5); Glucose 329 mg/dL (70-105); Protein, Total 6.9 g/dL (6.0-8.3); Sodium 138 mmol/L (136-145)
[2019-12-28] MEDS ORDERED: Midazolam HCl 2 mg/2 ml Vial ONE (10:41)
[2019-12-28] MEDS ORDERED: Fentanyl 100 MCG/2 ML VIAL ONE (10:42)
[2019-12-28] MEDS ORDERED: Aggrastat 12.5 MG/250 ML 250 ML ONE (11:08)
--- NOTE | 2019-12-28 11:08 | HP ---
REASON FOR ADMISSION: Acute recent myocardial infarction. HISTORY OF PRESENT ILLNESS: Mr. Helm is a 39-year-old gentleman. 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 Riana Ordonez. The patient had an inferior myocardial infarction in 2018, treated with a bare-metal stent as will be outlined below. The patient states for the last 3 days he has had chest pain. He says it has been continuous for 3 days now. It hurts when he takes a deep breath. MEDICATIONS: The patient states he is taking aspirin. The only medicine that he tells me that he is taking is aspirin. He also received aspirin in the emergency room. SOCIAL HISTORY: Positive for substance abuse. The patient continues to smoke, he says. REVIEW OF SYSTEMS: Otherwise does not report any other abnormalities, although as mentioned as will be outlined below. He answers usually with yes or no answers and very delayed. PHYSICAL EXAMINATION: GENERAL: The patient when asked questions usually stares straight ahead without answering. When asked if he heard, he says yes I hear you. He says he is having chest pain when he takes a deep breath now. VITAL SIGNS: His pulse is in the 70s. Blood pressure, please see the nursing notes. NECK: Neck veins are normal. Carotids, normal upstrokes. LUNGS: Clear. CARDIAC: Normal S1 and normal S2. ABDOMEN: Obese and nontender. EXTREMITIES: No clubbing or cyanosis. It is hard to feel his femoral pulses due to his obesity. Pedal pulses are palpable. LABORATORY DATA: All the laboratories pending. DIAGNOSTIC STUDIES: EKG shows Q-waves across the anterior leads with ST elevation, most likely compatible with a recent myocardial infarction with aneurysmal dilatation. ASSESSMENT: 1. Coronary artery disease with previous stent implantation in the right coronary artery in 2018, bare-metal stent was placed. 2. Abnormal EKG, most likely compatible with a myocardial infarction 2 to 3 days ago, still has chest pain, though lot of it is more with a deep breath, maybe pericardial. 3. Previous history of substance abuse with positive studies for PCP. 4. Continued smoking. 5. Morbid obesity. Weight is not yet available, but clearly morbidly obese. PLAN: Discussed cardiac catheterization to see if there is anything further that can be salvaged. As mentioned, he already has Q-waves across the precordium. Discussed cardiac catheterization. Risks including stroke, heart attack, iodine allergy, loss of blood supply to leg or kidney, stent thrombosis, stent restenosis were all discussed. The patient reports that "you're scaring me." However, the patient ultimately agreed to proceed to catheterization after extensive discussion. He understands the risks and wishes to proceed. Unfortunately, as mentioned, he may have already suffered a lot of myocardial injury. He does understand the risks of the procedure. Job ID: [id number]
[2019-12-28] MEDS ORDERED: Ondansetron PF 4 MG/2 ML Vial ONE (11:17)
[2019-12-28] MEDS ORDERED: Heparin 10,000 UNITS/1 ML VIAL ONE (11:22)
[2019-12-28] MEDS ORDERED: Heparin 25,000 units/D5W 500 ML ONE (11:26)
[2019-12-28] MEDS ORDERED: Mag-Al 1200 mg/1200 mg/30 ML UDCUP PO PRN (12:03)
[2019-12-28] MEDS ORDERED: Acetaminophen/Codeine 30-300mg Tablet PO PRN (12:03)
[2019-12-28] MEDS ORDERED: Lisinopril 20 MG TAB PO SCH (14:00)
[2019-12-28] MEDS ORDERED: Metoprolol Tartrate 5 MG/5 ML VIAL IVP PRN (14:01)
[2019-12-28 16:38] LABS: Troponin I 43.951 ng/mL (< 0.028)
[2019-12-28] MEDS ORDERED: Carvedilol 6.25 MG TAB PO SCH (17:00)
[2019-12-28] MEDS: Sodium Chloride 0.9% 1,000 ML IV SCH (18:20)
[2019-12-28] MEDS ORDERED: Dextrose 5% in Water 1,000 ML IV PRN (18:59)
[2019-12-28] MEDS ORDERED: Dextrose 50% Abboject 50 ML SYRINGE IVP PRN (18:59)
[2019-12-28] MEDS: Aggrastat 12.5 MG/250 ML 250 ML IVPB SCH (19:17)
[2019-12-28] MEDS: Insulin Regular 300 UNITS/3 ML VIAL SC PRN ×2 (19:18→21:47)
[2019-12-28 20:18] VITALS: BMI 50.6
[2019-12-28] MEDS ORDERED: Atorvastatin Calcium 40 MG TAB PO SCH (21:00)
[2019-12-29 02:02] LABS: Amphetamine Not Detected (NotDetected); Barbiturates Screen Not Detected (NotDetected); Benzodiazepine Screen Not Detected (NotDetected); Cocaine Metabolite Screen Detected (NotDetected); Medtox Control Line Valid? VALID (VALID); Medtox Reader # READER 4; Methadone Not Detected (NotDetected); Methamphetamine Detected (NotDetected); Opiate Screen Not Detected (NotDetected); Oxycodone Screen Not Detected (NotDetected); Phencyclidine (PCP) Detected (NotDetected); THC/Cannabinoid Screen Not Detected (NotDetected); Tricyclic Screen Not Detected (NotDetected)
[2019-12-29 03:45] LABS: #Eosinphils 0.1 thou/uL (0.0-0.7); #Lymphocytes 1.5 thou/uL (1.20-3.40); #Monocytes 0.7 thou/uL (0.11-0.59); #Neutrophils 4.4 thou/uL (1.40-6.50); %Basophils 0.5 % (0.0-1.0); %Eosinophils 0.9 % (0.0-10.0); %Lymphocytes 22.9 % (21.0-51.0); %Neutrophils 65.8 % (42.0-75.0); Hemoglobin 15.1 g/dL (14.0-18.0); Mean Corpuscular HGB CONC 33.8 g/dL (32.0-36.0); Mean Corpuscular Hemoglobin 29.5 pg (27.0-31.0); Mean Corpuscular Volume 87.3 fL (78.0-98.0); Platelet Count 249 thou/uL (130-400); RBC Distribution Width 14.2 % (11.5-14.5); Red Blood Cell (RBC) Count 5.11 mill/uL (4.70-6.10); White Blood Cell (WBC) Count 6.7 thou/uL (4.8-10.8)
[2019-12-29 04:05] LABS: ALT (SGPT) 32 U/L (8-55); AST (SGOT) 77 U/L (5-34); Albumin 3.3 g/dL (3.5-5.0); Alkaline Phosphatase 62 U/L (40-110); Anion Gap 10 mmol/L (10-20); BUN (Urea Nitrogen) 6 mg/dL (8.9-20.6); Bilirubin, Total 0.8 mg/dL (0.2-1.2); Calc. Creatinine Clearance 265 mL/min (70-130); Calcium 8.6 mg/dL (7.8-10.44); Carbon Dioxide 30 mmol/L (22-29); Chloride 101 mmol/L (98-107); Estimated GFR-MDRD Greater than 90; Globulin 2.9 g/dL (2.4-3.5); Glucose 198 mg/dL (70-105); Potassium 3.3 mmol/L (3.5-5.1); Protein, Total 6.2 g/dL (6.0-8.3); Sodium 138 mmol/L (136-145)
[2019-12-29 04:13] LABS: Critical Call Chem Troponin I RESULT DECREASING; Troponin I 36.923 ng/mL (< 0.028)
[2019-12-29] MEDS: Aggrastat 12.5 MG/250 ML 250 ML IVPB SCH (04:52)
[2019-12-29] MEDS: Insulin Regular 300 UNITS/3 ML VIAL SC PRN ×2 (05:32→12:27)
[2019-12-29] MEDS ORDERED: Potassium Chloride 20 MEQ TAB PO SCH (07:15)
[2019-12-29] MEDS ORDERED: Carvedilol 6.25 MG TAB PO SCH (08:00)
--- NOTE | 2019-12-29 08:23 | PRG ---
DATE OF SERVICE: 12/28/2019 Mr. Helm is doing well. He is not having any chest pain. I did discuss the situation with Mr. Helm' case over the phone with his . This obviously is a very difficult situation. He does not appear to have a stenosis in the proximal LAD, but has a very large amount of thrombus. The myocardial infarction I think probably occurred a few days ago. He actually came in with pleuritic or pericardial type pain. Troponin followup is essentially unchanged at 43, it was 40 on admission. At the time of catheterization, the distal third of the LAD was occluded with likely clot. There was extremely large amount of thrombus in the proximal LAD. At this point, I think the risk benefit ratio favors conservative medical therapy with blood thinners as opposed to any interventional mechanical therapy, especially in view of the patient having Q-waves in the anterior leads on his EKG. Any aspiration maneuver could potentially dislodge the clot into the circumflex or embolize the disease more distally, really not any great options in this situation. Stenting would almost certainly end up with diffuse embolization of this clot into the LAD. For now, the strategy is antiplatelet drugs and anticoagulation. The sheath is being pulled now, also blood pressure control. Toxicology screen is sent. The patient did give some indication that he probably is doing PCP. He did ask me if he told me yes, would that mean he went to senior living, so I told him definitely that would not mean he goes to senior living. We would just like to know for the information, but the laboratories are pending. Job ID: [id number]
[2019-12-29] MEDS ORDERED: Aspirin Chewable 81 MG TAB PO SCH (09:00)
[2019-12-29] MEDS ORDERED: Lisinopril 2.5 MG TAB PO SCH (09:00)
[2019-12-29] MEDS ORDERED: TICAGRELOR 90 MG TABLET PO SCH ×2 (09:00→21:00)
[2019-12-29] MEDS ORDERED: Enoxaparin Sodium 80 MG/0.8 ML SYRINGE SC SCH (09:00)
[2019-12-29] MEDS ORDERED: Lisinopril 5 MG TAB PO SCH (09:00)
[2019-12-29] MEDS ORDERED: Lisinopril 20 MG TAB PO SCH (09:00)
[2019-12-29] MEDS: Sodium Chloride 0.9% 1,000 ML IV SCH (09:06)
[2019-12-29 09:13] VITALS: BP 170/105
[2019-12-29] MEDS ORDERED: Enoxaparin Sodium 40 MG/0.4 ML SYRINGE SC SCH ×2 (09:30→21:00)
--- NOTE | 2019-12-29 11:53 | PDOC.CPN ---
- Subjective Date: 12/29/19 Time: 08:00 Interval history: The pt seen and examined. No overnight events. No cardiac complaints. He is more alerted and answers questions today - Objective Allergies/Adverse Reactions: Allergies Allergy/AdvReac Type Severity Reaction Status Date / Time No Known Drug Allergies Allergy Verified 11/08/17 08:43 Visit Medications: Current Medications Acetaminophen/Codeine Phosphate (Tylenol #3) 1 tab PO Q4H PRN PRN Reason: Mild Pain (1-3) Al Hydroxide/Mg Hydroxide (Maalox) 30 ml PO Q3H PRN PRN Reason: Indigestion Aspirin (Aspirin Chewable) 81 mg PO DAILY [facility] Last Admin: 12/29/19 09:04 Dose: 81 mg Atorvastatin Calcium (Lipitor) 40 mg PO HS [facility] Last Admin: 12/28/19 21:20 Dose: 40 mg Carvedilol (Coreg) 12.5 mg PO BID-[facility] Last Admin: 12/29/19 09:01 Dose: 12.5 mg Dextrose/Water (Dextrose 50%) 25 gm IVP PRN PRN PRN Reason: HYPOGLYCEMIA PROTOCOL Enoxaparin Sodium (Lovenox) 40 mg SC 0900,2100 [facility] Glucagon (Glucagon) 1 mg IM PRN PRN PRN Reason: HYPOGLYCEMIA PROTOCOL Tirofiban/Sodium Chloride (Aggrastat 12.5 Mg/250 Ml) 250 mls @ 0 mls/hr IVPB INF COLT; Protocol Last Admin: 12/29/19 04:52 Dose: 250 mls Sodium Chloride (Normal Saline 0.9%) 1,000 mls @ 50 mls/hr IV .Q20H [facility] Last Admin: 12/29/19 09:06 Dose: Not Given Dextrose/Water (D5w) 1,000 mls @ 0 mls/hr IV INF PRN PRN Reason: HYPOGLYCEMIA PROTOCOL Insulin Human Regular (Humulin R) 0 units SC .MILD SLIDING PRN; Protocol PRN Reason: MILD SLIDING SCALE Last Admin: 12/29/19 05:32 Dose: 2 unit Lisinopril (Zestril) 20 mg PO DAILY [facility] Last Admin: 12/29/19 09:02 Dose: 20 mg Potassium Chloride (K-Dur) 40 meq PO NOW [facility] Stop: 12/29/19 12:00 Last Admin: 12/29/19 09:00 Dose: 40 meq Sodium Chloride (Flush - Normal Saline) 10 ml IVF Q12HR COLT Last Admin: 12/29/19 09:08 Dose: 10 ml Sodium Chloride (Flush - Normal Saline) 10 ml IVF PRN PRN PRN Reason: Saline Flush Ticagrelor (Brilinta) 90 mg PO BID COLT Vital Signs & Weight: Vital Signs Temp BP Pulse Ox 12/29/19 09:02 170/105 H 12/29/19 09:01 173/104 H 12/29/19 08:00 98.1 F 96 12/29/19 04:00 99.4 F 12/29/19 00:00 99.1 F Weight 313 lb 15.012 oz - Physical Exam General: alert & oriented x3 HEENT: mucus membranes moist Neck: supple neck Cardiac: regular rate and rhythm, S1/S2 Lungs: clear to auscultation, decreased breath sounds Neuro: cranial nerve 2-12 intact Extremities: no edema - Labs Result Diagrams: 12/29/19 03:25 12/29/19 03:25 Troponin/CKMB CK-MB (CK-2) 59.0 ng/mL (0-6.6) H* 12/28/19 10:01 Troponin I 36.923 ng/mL (< 0.028) H* 12/29/19 03:25 - Telemetry Sinus rhythms and dysrhythmias: sinus rhythm - Assessment/Plan Assessment/Plan: 1. Thrombus in distal LAD - On Aggrestat; 2. 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 CAD with hx of stent in RCA in 10/2017 - On Coreg, Lisinopril, ASA, Statin, and Brilinta 4. HTN - Coreg and Lisinopril were increased this AM 5. HLD - on Statin 6. DM type 2 7. Obese 8. hx of Afib in 2018 - remains in SR; 9. Tobacco and illicit drug abuse - Tobacco and Illicit drug cessation education given to the pt MAR reviewed
[2019-12-29 13:22] VITALS: TEMP 99.4
--- NOTE | 2019-12-29 18:46 | DIS ---
DATE OF ADMISSION: 12/28/2019 DATE OF DISCHARGE: 12/29/2019 ADMITTING DIAGNOSIS: Acute anterior myocardial infarction. OTHER DIAGNOSES: Include illicit drug use as well as hypertension, diabetes, dyslipidemia, noncompliance with medications. DISCHARGE DIAGNOSES: Acute anterior myocardial infarction, illicit drug use as well as hypertension, diabetes, dyslipidemia, noncompliance with medications. PROCEDURE IN HOSPITAL: Included cardiac catheterization as well as starting anti-platelet medication with Aggrastat. He also was placed on Brilinta as well as Lovenox and aspirin due to a large thrombus which was noted in the left anterior descending artery in the proximal area. DISCHARGE MEDICATIONS: Lisinopril 5 mg a day, I believe, this was increased up to 20 mg a day. He also was taking Coreg 6.25 mg b.i.d., atorvastatin was 40 mg q.p.m. Previously, he had also been on insulin, metformin, said he was no longer taking this medication. Also, aspirin 81 mg a day, Brilinta 90 mg b.i.d. HOSPITAL COURSE: This gentleman was admitted yesterday complaining of chest pain. EKG showed what appeared to be a large anterior myocardial infarction. His enzymes already positive. He was taken to the cardiac laboratory manager, where he was found to have a large thrombus in the proximal to mid left anterior descending artery. Due to the proximity in the left anterior descending artery, no intervention was performed for fear that the clot would be dislodged and will go down the left circumflex and cause further damage. He was started on Aggrastat, was also on Lovenox as well as being on Brilinta and also aspirin. He had not complained of any further chest pain. He was wanting to go home and I explained to him that he was at high risk and then he needs to be on at least the Aggrastat for at least 24 hours. He is also on other medications. He was noncompliant with the nursing staff, becoming very belligerent, would not answer questions, would also not answer questions for the physicians, even when asked about which medicines he was taking. His drug screen was positive for multiple different illicit drugs, which included cocaine as well as phencyclidine, methamphetamines as well as the cocaine. The patient had denied using previous drugs, saying that he was depressed and that is why he used drugs. On previous admissions, his drug screen has been positive also. I explained to him that it is quite possible that the cocaine causes vasospasms, which induced thrombus in the left anterior descending artery, causing his myocardial infarction. The patient was insistent that he leave AMA and I believe, the patient did sign the papers and he was discharged from the hospital against medical advice. Job ID: [id number] MTDD
--- NOTE | 2019-12-31 14:08 | EKG ---
Test Reason : Blood Pressure : / mmHG Vent. Rate : 097 BPM Atrial Rate : 097 BPM P-R Int : 148 ms QRS Dur : 094 ms QT Int : 310 ms P-R-T Axes : 071 100 027 degrees QTc Int : 393 ms Normal sinus rhythm Possible Left atrial enlargement Inferior infarct , possibly acute Anterolateral infarct , possibly acute * ACUTE [place] * Abnormal ECG Confirmed by MARTINE BELTRE ([id number]), news assignment editor DIVYA HOLMAN ([id number]) on 12/31/2019 2:08:09 PM Referred By: Confirmed By:MARTINE Johansen
== END 2019-12-29 14:29 | disposition left against medical advice (07) | DRG 281 ==
LOC: ERS 09:44 → CCL 10:32 → CCU 10:56
PROVIDERS: ADMIT Internal Medicine Cardiovascular Disease; ATTEND Internal Medicine Cardiovascular Disease
PROC: 4A023N7 Measurement of Cardiac Sampling and Pressure, Left Heart, Percutaneous Approach (ICD-10-PCS; principal; 2019-12-28)
PROC: B2111ZZ Fluoroscopy of Multiple Coronary Arteries using Low Osmolar Contrast (ICD-10-PCS; 2019-12-28)
DX: I21.09 ST elevation (STEMI) myocardial infarction involving other coronary artery of anterior wall (principal); Z68.43 Body mass index [BMI] 50.0-59.9, adult; I10 Essential (primary) hypertension; E11.9 Type 2 diabetes mellitus without complications; I25.5 Ischemic cardiomyopathy; E78.5 Hyperlipidemia, unspecified; E66.01 Morbid (severe) obesity due to excess calories; Z91.14 Patient's other noncompliance with medication regimen; Z87.891 Personal history of nicotine dependence; Z11.59 Encounter for screening for other viral diseases
CPT/HCPCS: 36416; 71045; 76942; 80053; 80306; 82553; 84484; 85025; 85347; 85610; 85730; 92977; 93005; 93010; 93458; 96374; 99152; 99153; C1769; J1644; J1650; J1815; J2250; J2405; J3010; J3246; Q9967; U0001